=== PATIENT | male | born 1965 | race Caucasian/White ===

== ENCOUNTER 2017-10-29 12:11 | Day surgery (SDC) | payer OTHER ==
[2017-10-29] MEDS ORDERED: PROPOFOL 0 ML (13:32)
[2017-10-29] MEDS ORDERED: MIDAZOLAM 1 MG/ML 2 ML INJ ×2 (14:53)
[2017-10-29] MEDS ORDERED: FENTAnyl 50 MCG/ML VIAL (14:53)
== END 2017-10-29 16:49 | disposition home or self-care (01) ==
LOC: GIL 12:11
DX: Z12.11 Encounter for screening for malignant neoplasm of colon (principal); K57.90 Diverticulosis of intestine, part unspecified, without perforation or abscess without bleeding; E11.9 Type 2 diabetes mellitus without complications
CPT/HCPCS: 45378